=== PATIENT | female | born 1965 | race African-American/Black ===

== ENCOUNTER → 2016-10-09 | Outpatient (CLI) | payer BC ==
--- NOTE | ~2016-10-09 | MY11 ---
[facility] A Service of [facility] RADIOLOGY TEXT RESULTS PATIENT: JOSHUA PEREZ LOCATION: [facility] : 63 UNIT #: [id number] AGE: [address]: Luanne Hopkins SEX: F ORDER DR: [id number] [facility] [address] [place], [place] [address] [id number] O MR#: [id number] Acc #: [id number] NAME: JOSHUA PEREZ : 1965 SEX: F STUDY DATE/TIME: 10/09/2016 16:05 UNIT: [facility] ROOM: STUDY DESCRIPTION: MY Mammogram Screening Dig Angelito Attending Physician: Luanne Hopkins A.P.R.N. Ordering Physician: Luanne Hopkins A.P.R.N. Primary Care Physician: Luanne Hopkins A.P.R.N. MEDICAL IMAGING REPORT This report is preliminary unless electronic signature is present EXAM Bilateral digital screening mammogram with CAD. HISTORY Routine screening. No current complaints. No family history of breast cancer. COMPARISON 05/26/2015, 02/05/2013, 10/29/2010. FINDINGS MLO and CC digital views of each breast were obtained and reviewed with FDA approved CAD device. There are scattered fibroglandular densities present. There are no masses or abnormal calcifications. There are benign calcifications bilaterally. There is no change. There is a somewhat nodular pattern in the right breast. IMPRESSION No change. No evidence of malignancy. Patients over the age of 40 are entered into a reminder system with target due date for the next mammogram. A result letter will also be sent to the patient. BIRADS: 2 Benign finding. Dictated by... Bobby Santana M.D. THIS IS AN ELECTRONICALLY VERIFIED REPORT Bobby Santana M.D. at 10/10/2016 1:53 PM NICHOLAS/calvin [facility] A Service [facility] RADIOLOGY TEXT RESULTS PATIENT: JOSHUA PEREZ LOCATION: [facility] : 63 UNIT #: [id number] AGE: [address]: Luanne Hopkins SEX: F ORDER DR: TD: 10/10/2016 10:38 JOB #: [id number] MEDICAL IMAGING REPORT Page 1 of 1 COPY
== END | disposition home or self-care (01) ==
LOC: CWCC 16:01
DX: Z12.31 Encounter for screening mammogram for malignant neoplasm of breast (principal)
CPT/HCPCS: G0202